=== PATIENT | male | born 1960 | race Caucasian/White ===

== ENCOUNTER 2018-10-13 11:42 | Day surgery (SDC) | payer OTHER, SELFPAY ==
--- NOTE | 2018-10-13 | PATH_ITS ---
[facility] Accession Number: [id number] . 01 Material submitted: . PART A: POLYP X2 ASCENDING COLON AT 80CM PART B: CECAL POLYP PART C: TRANSVERSE COLON POLYP AT 60CM PART D: LEFT COLON POLYP AT 45CM PART E: SIGMOID POLYP AT 20CM X2 . 02 Diagnosis: A. Ascending Colon, Polyp x2 at 80 CM, Biopsies: Fragments of tubular adenoma and sessile serrated adenoma. . B. Cecum, Polyp, Biopsy: Tubulovillous adenoma. No evidence of malignancy or high grade dysplasia. . C. Transverse Colon, Polyp at 60 CM, Biopsy: Tubular adenoma. . D. Left Colon, Polyp at 45 CM, Biopsy: Polypoid colonic mucosa with no diagnostic abnormality, consistent with polypoid redundancy. Additional levels examined. . E. Sigmoid Colon, Polyp at 20 CM x2, Biopsies: Hyperplastic polyp, 1 fragment. JRL/10/14/2018 . 02 Electronically signed: . Joleen Joiner MD, Pathologist NPI- [id number] . 01 Gross description: . Received five formalin-filled containers each labeled with the patient's name. . A. In a container labeled polyp x2 at ascending colon at 80 cm are two 0.2 to 0.6 cm portions of tissue. Entirely submitted in cassette A. B. In a container labeled 2. Cecal polyp are multiple 0.1 to 0.6 cm portions of tissue. Entirely submitted in cassette B. C. In a container labeled transverse colon polyp at 60 cm are two 0.1 to 0.3 cm portions of tissue. Entirely submitted in cassette C. D. In a container labeled left colon polyp at 45 cm, the specimen consists of a 0.2 cm portion of tissue. Entirely submitted in cassette D. E. In a container labeled sigmoid polyp at 20 cm x2, the specimen consists of a 0.2 cm portion of tissue and mucoid material. Entirely submitted in cassette E. ([facility] – [place]:[id number]) / . Pathologist provided ICD-10: D12.2, D12.0, D12.3 . 02 CPT . 242551, 368716, 354813, 149636, 149948 Performed at: 01 [facility] [address] [id number] MD Silverio Mcgraw MD Phone: [phone] Performed at: [address] [id number] MD Joleen Joiner MD Phone: [phone]
[2018-10-13 12:01] VITALS: BP 143/87; PULSE 67; RESP 16; TEMP 36.5; O2SAT 94; BMI 31.9
[2018-10-13] MEDS: SODIUM CHLORIDE 0.9% 1,000 ML 200 ML IV (12:11)
--- NOTE | 2018-10-13 12:55 | PM.HP.1 ---
History of Present Illness Date Patient Seen: 10/13/18 Time Patient Seen: 12:55 Chief complaint: colonoscopy 68030 Narrative: 58-year-old male who underwent initial screening colonoscopy approximately 6 years ago was found have polyps at that time. He returns now for colorectal surveillance. On further history today he denies any new gastrointestinal symptoms. No nausea, vomiting, abdominal pain, loss of appetite, unexplained weight loss, change in bowel habits, diarrhea, constipation, melena, hematochezia, or bright red blood per rectum. He is having occasional discomfort and mild superficial bleeding from external hemorrhoids but not currently. Patient History Medical History History of colon polyps (Acute) Hypercholesterolemia (Acute) Neck fracture (Resolved) Surgical History History of colonoscopy (Acute) Family & Social History Social History: household members spouse Meds Home Medications Medication Instructions Recorded Confirmed Type No Known Home Medications 10/13/18 10/13/18 History Allergies Allergy/AdvReac Type Severity Reaction Status Date / Time No Known Allergies Allergy Uncoded 02/23/18 12:56 Review of Systems Review of Systems All systems reviewed & are unremarkable except as noted in HPI and below Exam Vital Signs (past 8 hours): - 10/13/18 12:01 Temperature 97.7 F Pulse Rate 67 Respiratory Rate 16 Blood Pressure 143/87 H Pulse Oximetry 94 Oxygen Delivery Method Room Air Narrative Exam Narrative: Well-nourished well-developed mildly obese male in no acute distress. Alert oriented x3. Family is at the bedside during my visit. Sclera nonicteric Regular rate and rhythm Abdomen protuberant but soft and nondistended. Nontender. No masses. Extremities show no clubbing, cyanosis, or edema Objective Labs Labs: No new laboratory or radiographic studies for review Assessment & Plan Plan: Assessment/Plan Narrative: 58-year-old male with personal history of colon polyps. It has been 6 years since his last endoscopy. Surveillance colonoscopy is again recommended currently. Technical details of the procedure were discussed. Risks, benefits, alternatives were explained. Risks including but not limited to sedation, aspiration, bleeding, pain, missed lesion, incomplete examination, need for further radiographic studies, colonic perforation, need for major abdominal surgery, and all attendant risks of major surgery were discussed at length. All questions were answered to his satisfaction, and he voiced understanding. Consent was placed on the chart. We will proceed as above.
--- NOTE | 2018-10-13 12:58 | P.HP_ITS ---
History of Present Illness Date Patient Seen: 10/13/18 Time Patient Seen: 12:55 Chief complaint: colonoscopy [id number] Narrative: 58-year-old male who underwent initial screening colonoscopy approximately 6 years ago was found have polyps at that time. He returns now for colorectal surveillance. On further history today he denies any new gastrointestinal symptoms. No nausea, vomiting, abdominal pain, loss of appetite, unexplained weight loss, change in bowel habits, diarrhea, constipation, melena, hematochezia, or bright red blood per rectum. He is having occasional discomfort and mild superficial bleeding from external hemorrhoids but not currently. Patient History Medical History History of colon polyps (Acute) Hypercholesterolemia (Acute) Neck fracture (Resolved) Surgical History History of colonoscopy (Acute) Family & Social History Social History: household members spouse Meds Home Medications Medication Instructions Recorded Confirmed Type No Known Home Medications 10/13/18 10/13/18 History Allergies Allergy/AdvReac Type Severity Reaction Status Date / Time No Known Allergies Allergy Uncoded 02/23/18 12:56 Review of Systems Review of Systems All systems reviewed & are unremarkable except as noted in HPI and below Exam Vital Signs (past 8 hours): - 10/13/18 12:01 Temperature 97.7 F Pulse Rate 67 Respiratory Rate 16 Blood Pressure 143/87 H Pulse Oximetry 94 Oxygen Delivery Method Room Air Narrative Exam Narrative: Well-nourished well-developed mildly obese male in no acute distress. Alert oriented x3. Family is at the bedside during my visit. Sclera nonicteric Regular rate and rhythm Abdomen protuberant but soft and nondistended. Nontender. No masses. Extremities show no clubbing, cyanosis, or edema Objective Labs Labs: No new laboratory or radiographic studies for review Assessment & Plan Plan: Assessment/Plan Narrative: 58-year-old male with personal history of colon polyps. It has been 6 years since his last endoscopy. Surveillance colonoscopy is again recommended currently. Technical details of the procedure were discussed. Risks, benefits , alternatives were explained. Risks including but not limited to sedation, aspiration, bleeding, pain, missed lesion, incomplete examination, need for further radiographic studies, colonic perforation, need for major abdominal surgery, and all attendant risks of major surgery were discussed at length. All questions were answered to his satisfaction, and he voiced understanding. Consent was placed on the chart. We will proceed as above.
--- NOTE | 2018-10-13 12:58 | PM.PREOP ---
Pre-operative Note Interval Note Pre-op Check: Yes History & Physical Reviewed by Physician, Yes Exam Performed and Yes History & Physical exam performed today by Physician Changes: No H&P completed within 30 days and has changed as indicated here:: Patient seen and examined in the preoperative area. History and physical examination placed on the chart today. Proceed with colonoscopy today as planned. ASA Class (for procedural sedation): I
[2018-10-13 13:31] VITALS: BP 154/98; PULSE 70; RESP 18; TEMP 36.2; O2SAT 97
--- NOTE | 2018-10-13 13:32 | PM.OP.ENDO ---
Operative Date/Time/Diagnoses Date of procedure: 10/13/18 Time of procedure: 13:32 Pre-op diagnosis: Personal history of colon polyps Post-op diagnosis: same Procedure & Clinicians Study performed: 1. Sedation per surgeon 2. Colonoscopy with hot snare polypectomies and cold forceps polypectomies Same procedure as scheduled: Yes Indications: 58-year-old male with personal history of colon polyps. Last endoscopy was 6 years ago. He requires surveillance colonoscopy currently. Surgeon: José Luis Cohn Procedure Notes SCOAP/Timeout: Yes Procedure in detail: After obtaining informed consent, the patient was brought to the GI suite and placed in the left lateral decubitus position on the examination table. After placement of appropriate monitors, the patient was given incremental doses of Versed and Fentanyl until an appropriate level of sedation was achieved. A time out was held per SCOAP protocol. A digital rectal examination was performed and did not reveal any masses or obstructing lesions. The colonoscope was gently passed into the patient's anus and the entire colon navigated to the level of the cecum with minimal difficulty. Once in the cecum, the scope was withdrawn being sure to go before and beyond all mucosal folds and prominences and get an excellent examination. The findings are noted above. At the level of the rectal vault, the scope was retroflexed and the internal anal canal was examined. The scope was straightened and air aspirated from the colon. The instrument was removed from the patient's body and the procedure was concluded. The patient was allowed to awaken from sedation without difficulty and taken to the post-anesthesia care unit in good condition. Scope withdrawal time: 20:34 min Sedation minutes: 32 Findings: polyp Specimen(s): other (1. Ascending colon polyps x2 at 80 cm 2. Cecal polyp 3. Transverse colon polyp at 60 cm 4. Left colon polyp at 45 cm 5. Sigmoid colon polyps x2 at 20 cm) Complications: none Recommendations: Colonscopy in 3 years, High fiber diet and Will call with biopsy results Plan for aftercare: 1. Discharged home Follow up: as needed Disposition: same day surgery
[2018-10-13 13:44] VITALS: BP 142/83; PULSE 68; RESP 18; TEMP 36.5; O2SAT 97
--- NOTE | 2018-10-13 13:56 | SUR.PHASEII ---
Pt had very light sedation states he is ready to go home. States he feels great. RN did 2 sets of vitals pt very stable he had 2 juices and IV d/gabriela and pt d/gabriela home with . d/gabriela in wheelchair. No complaints voiced.
[2018-10-13] MEDS: fentaNYL 250 MCG/5 ML INJ 100 MCG IV (14:54)
[2018-10-13] MEDS: MIDAZOLAM 5 MG/5 ML VIAL 2 MG IV (14:55)
== END 2018-10-13 13:55 | disposition home or self-care (01) ==
PROVIDERS: Visit Provider Surgery
PROC: 0DJD8ZZ Inspection of Lower Intestinal Tract, Via Natural or Artificial Opening Endoscopic (ICD-10-PCS; CPT 45378; principal; 2018-10-13 12:45)
DX: Z86.010 Personal history of colon polyps (principal); D12.2 Benign neoplasm of ascending colon; D12.0 Benign neoplasm of cecum; D12.3 Benign neoplasm of transverse colon; K64.4 Residual hemorrhoidal skin tags
CPT/HCPCS: 45385; 45380; 99152; 99153; J2250; J3010

== ENCOUNTER → 2019-08-28 16:22 | Outpatient (CLI) | payer OTHER, SELFPAY ==
[2019-08-28 17:21] LABS: Add Manual Diff / Slide Review NO; Basophils Absolute Auto 0 /uL (0-100); Basophils Percent Auto 0.2 % (0-2); Eosinophils Absolute Auto 100 /uL (0-450); Eosinophils Percent Auto 1.4 % (2-4); Hematocrit 45.2 % (41-53); Hemoglobin 15.5 g/dL (13.5-17.5); Lymphocytes Absolute Auto 1300 /uL (1100-4500); Lymphocytes Percent Auto 20.4 % (25-40); Mean Corpuscular HGB Conc 34.2 % (30-36); Mean Corpuscular Hemoglobin 29.2 PG (26-34); Mean Corpuscular Volume 85.5 fL (80-100); Monocytes Absolute Auto 700 /uL (0-900); Monocytes Percent Auto 10.7 % (3-14); Neutrophils Absolute Auto 4200 /uL (1500-7000); Neutrophils Percent Auto 67.3 % (50-75); Platelet Count 194 X10^3/uL (150-400); Red Blood Cell Count 5.29 X10^6/uL (4.5-5.9); White Blood Cell Count 6.2 X10^3/uL (4.5-11.0)
[2019-08-28 17:36] LABS: BUN Creatinine Ratio 16.3 (6-22); Blood Urea Nitrogen 13 mg/dL (9-20); Calcium 9.2 mg/dL (8.4-10.2); Carbon Dioxide 26 mmol/L (22-32); Chloride 104 mmol/L (98-107); Estimated Glomerular Filt Rate > 60.0 mL/min (>60); Glucose 131 mg/dL (70-100); HEMOLYSIS < 15 (0-50); Lipase 618 U/L (23-300); Potassium 4.4 mmol/L (3.4-5.1); Sodium 139 mmol/L (137-145)
[2019-08-28 18:03] LABS: Alanine Aminotransferase 120 IU/L (21-72); Albumin 4.6 g/dL (3.5-5.0); Albumin Globulin Ratio 1.8 (1.0-2.8); Alkaline Phosphatase 50 U/L (38-126); Aspartate Aminotransferase 87 IU/L (17-59); Bilirubin Total 0.6 mg/dL (0.2-1.3); Bilirubin Unconjugated 0.5 mg/dL (0.0-1.1); Globulin 2.6 g/dL (1.7-4.1); HEMOLYSIS < 15 (0-50); Total Protein 7.2 g/dL (6.3-8.2)
[2019-08-28 19:16] LABS: Clostridium Difficile Tox PCR Negative for C. diff
== END ==
PROVIDERS: Visit Provider Physician Assistant
DX: K52.9 Noninfective gastroenteritis and colitis, unspecified (principal); K85.90 Acute pancreatitis without necrosis or infection, unspecified
CPT/HCPCS: 36415; 80048; 80076; 83690; 85025; 87493

== ENCOUNTER 2019-08-28 20:18 | Emergency (ER) | payer OTHER, SELFPAY ==
[2019-08-28 20:26] VITALS: BP 150/83; PULSE 84; RESP 12; TEMP 36.7; O2SAT 96
[2019-08-28] MEDS: ONDANSETRON 4 MG/2 ML INJ IV (20:38)
[2019-08-28] MEDS: SODIUM CHLORIDE 0.9% 1,000 ML 1000 ML IV (20:38)
--- NOTE | 2019-08-28 20:40 | DI.US.S_ITS ---
PROCEDURE: US ABDOMEN LIMITED INDICATIONS: RIGHT UPPER QUADRANT PAIN TECHNIQUE: Real-time focused scanning was performed of the abdomen, with image documentation. COMPARISON: None. FINDINGS: Liver is enlarged and demonstrates increased echogenicity without definite focal mass. Gallbladder is suboptimally visualized and demonstrates internal echoes, possibly secondary to internal sludge. No gallbladder wall thickening. No definite biliary ductal dilatation. Biliary tree is not well-seen. Visualized pancreas within normal limits. IMPRESSION: 1. Hepatic steatosis. 2. No evidence of cholecystitis. 3. Possible gallbladder sludge. Dictated by: Shagufta Marie M.D. on 08/28/2019 at 21:18 Approved by: Shagufta Marie M.D. on 08/28/2019 at 21:19
[2019-08-28 21:09] LABS: Lipase 273 U/L (23-300)
--- NOTE | 2019-08-28 21:13 | ED_ITS ---
HPI - Abdominal Pain General Chief Complaint: Abdominal Pain Stated Complaint: STOMACH FLU Time Seen by Provider: 08/28/19 20:34 Source: patient Mode of arrival: Ambulatory Limitations: no limitations History of Present Illness HPI narrative: Patient is a 59-year-old male with history of alcoholism presenting with what he thought was a stomach bug. He has had some diarrhea and nausea ongoing for the last 2 days. He went to the walk-in clinic earlier today where he had blood work lipase was found to be 600 and he had minimal elevation of his liver enzymes. He got a return phone call instructed to come to the ED for further evaluation. He states that he is able to tolerate fluids he has not had any vomiting. His diarrhea has not gotten any better but it has not gotten any worse. He denies any blood in his stool. His pain now is minimal. Related Data Home Medications Medication Instructions Recorded Confirmed No Known Home Medications 10/13/18 08/28/19 ibuprofen 600 mg PO Q8H PRN 08/28/19 08/28/19 Allergies Allergy/AdvReac Type Severity Reaction Status Date / Time No Known Drug Allergies Allergy Verified 08/28/19 20:29 Review of Systems Review of Systems Narrative: GENERAL: Denies chills, fatigue, malaise, fever, sweats, travel HEENT: Denies sinus pain, ear pain, sore throat, difficulty swallowing, neck pain RESPIRATORY: Denies dyspnea, cough, wheezing, hemoptysis, sputum. CARDIOVASCULAR: Denies chest pain, palpitations, orthopnea, edema GASTROINTESTINAL: See HPI : Denies dysuria, frequency, incontinence, hematuria, urinary retention, flank pain. MUSCULOSKELETAL: Denies weakness, joint pain, or bony pain SKIN: No rash, no erythema, no pruritus NEUROLOGIC: Denies weakness, dizziness, headache, numbness, change in speech, confusion PSYCHIATRIC: No concerning psychosocial issues. 12 point review of systems is negative except for those stated above and HPI Patient History Social History Social History household members: spouse Smoking Status: Never smoker alcohol intake frequency: 3 or more drinks per day Alcohol type: beer and wine Substance Use Type: does not use Exam Initial Vital Signs Initial Vital Signs: Vital Signs Temperature 98.1 F 08/28/19 20:26 Pulse Rate 84 08/28/19 20:26 Respiratory Rate 12 08/28/19 20:26 Blood Pressure 150/83 H 08/28/19 20:26 Pulse Oximetry 96 08/28/19 20:26 GENERAL: Well-appearing, well-nourished and in no acute distress. HEENT: Head atraumatic,EOMI, pupils reactive, face symmetric CARDIOVASCULAR: Regular rate and rhythm without murmurs, rubs or gallops. RESPIRATORY: Breath sounds equal bilaterally, no wheezes rales or rhonchi. ABDOMEN: Soft, nontender. Normoactive bowel sounds all 4 quadrants. No guarding or rebound. EXTREMITIES: Normal range of motion, no clubbing or edema. Neurovascularly intact NEUROLOGICAL: Alert and oriented x4.Normal gait and speech. Cranial nerves II through XII grossly intact. SKIN: Warm, dry, no laceration, no petechiae, no rashes or lesions. Course Orders Ordered: ED Orders 08/28/19 20:40 US abdomen limited Stat Comprehensive Metabolic Panel Stat Lipase Stat Discontinued Medications Sodium Chloride (Normal Saline 0.9%) 1,000 mls @ 1,000 mls/hr IV BOLUS ONE Stop: 08/28/19 21:29 Last Infusion: 08/28/19 21:32 Dose: 0 mls/hr Documented by: Admin: 08/28/19 20:38 Dose: 1,000 mls/hr Documented by: JOE Ondansetron HCl (Zofran) 4 mg IV NOW ONE Stop: 08/28/19 20:31 Last Admin: 08/28/19 20:38 Dose: 4 mg Documented by: JOE Vital Signs Vital signs: Vital Signs - 8 hr 08/28/19 20:26 08/28/19 21:30 08/28/19 21:50 Temperature 98.1 F Pulse Rate 84 81 78 Respiratory Rate 12 19 14 Blood Pressure 150/83 H 140/75 Blood Pressure [Left Arm] 140/75 Pulse Oximetry 96 96 96 MDM - Abdominal Pain Lab Data Attestation: I reviewed the patient's lab results. Result diagrams: 08/28/19 20:40 Labs: Lab Results 08/28/19 08/28/19 Range/Units 20:40 20:40 Sodium Cancelled 137 Potassium Cancelled 3.8 Chloride Cancelled 104 Carbon Dioxide Cancelled 25 BUN Cancelled 12 Creatinine Cancelled 0.80 Estimated GFR Cancelled > 60.0 BUN/Creatinine Ratio Cancelled 15.0 Glucose Cancelled 127 H Calcium Cancelled 8.7 Total Bilirubin Cancelled 0.6 AST Cancelled 82 H ALT Cancelled 115 H Alkaline Phosphatase Cancelled 46 Total Protein Cancelled 7.2 Albumin Cancelled 4.4 Globulin Cancelled 2.8 Albumin/Globulin Ratio Cancelled 1.6 Lipase 273 D (23-300) U/L Specimen Hemolysis Cancelled Imaging Data US - abdomen: Radiologist's impression: PROCEDURE: US ABDOMEN LIMITED INDICATIONS: RIGHT UPPER QUADRANT PAIN TECHNIQUE: Real-time focused scanning was performed of the abdomen, with image documentation. COMPARISON: None. FINDINGS: Liver is enlarged and demonstrates increased echogenicity without definite focal mass. Gallbladder is suboptimally visualized and demonstrates internal echoes, possibly secondary to internal sludge. No gallbladder wall thickening. No definite biliary ductal dilatation. Biliary tree is not well-seen. Visualized pancreas within normal limits. IMPRESSION: 1. Hepatic steatosis. 2. No evidence of cholecystitis. 3. Possible gallbladder sludge. Dictated by: Shagufta Marie M.D. on 08/28/2019 at 21:18 MDM Narrative Medical decision making narrative: No evidence of pancreatitis or acute cholecys titis. He does have some gallbladder sludge noted. At this time patient can be discharged home with close outpatient follow-up. Symptoms are actually more consistent with gastroenteritis rather than pancreatitis. Discharge Plan Departure Patient Disposition: Home Clinical Impression: Abdominal pain Qualifiers: Abdominal location: generalized Qualified Code(s): R10.84 - Generalized abdominal pain Discharge Date/Time: 08/28/19 21:51 Instructions: DI for Abdominal Pain-Adult Activity Restrictions/Additional Instructions: *You have been diagnosed with abdominal pain *What to do: Increase fluid intake. No evidence of pancreatitis or gallbladder problems. Her liver enzymes are mildly elevated. You may require repeat evaluation of her gallbladder if he has continued to have significant pain in her right upper quadrant *Continue to take medications as directed *Follow up with your primary care provider in 2-3 days *Return to ER if you should have increasing pain persistent vomiting or any new, worsening or concerning symptoms Prescriptions: No Action No Known Home Medications RF: 0 ibuprofen 600 mg Tablet 600 mg PO Q8H PRN (Reason: Pain (Scale Score 4-6)) RF: 0
[2019-08-28 21:30] VITALS: BP 140/75; PULSE 81; RESP 19; O2SAT 96
[2019-08-28 21:30] LABS: Alanine Aminotransferase 115 IU/L (21-72); Albumin 4.4 g/dL (3.5-5.0); Albumin Globulin Ratio 1.6 (1.0-2.8); Alkaline Phosphatase 46 U/L (38-126); Aspartate Aminotransferase 82 IU/L (17-59); Bilirubin Total 0.6 mg/dL (0.2-1.3); Blood Urea Nitrogen 12 mg/dL (9-20); Calcium 8.7 mg/dL (8.4-10.2); Carbon Dioxide 25 mmol/L (22-32); Chloride 104 mmol/L (98-107); Estimated Glomerular Filt Rate > 60.0 mL/min (>60); Globulin 2.8 g/dL (1.7-4.1); Glucose 127 mg/dL (70-100); HEMOLYSIS < 15 (0-50); Potassium 3.8 mmol/L (3.4-5.1); Sodium 137 mmol/L (137-145); Total Protein 7.2 g/dL (6.3-8.2)
[2019-08-28 21:50] VITALS: BP 140/75; PULSE 78; RESP 14; O2SAT 96
== END 2019-08-28 21:51 | disposition home or self-care (01) ==
PROVIDERS: Emergency Provider Emergency Medicine
DX: R10.84 Generalized abdominal pain (principal)
CPT/HCPCS: 36415; 76705; 80048; 80053; 80076; 83690; 85025; 87493; 96361; 96374; 99283; 99284; J2405

== ENCOUNTER → 2021-11-18 13:11 | Outpatient (CLI) | payer OTHER, SELFPAY ==
[2021-11-18 13:58] LABS: COVID19 -Nasal RAPID POSITIVE (Negative)
== END ==
PROVIDERS: Visit Provider Nurse Practitioner Family
DX: R51.9 Headache, unspecified (principal)
CPT/HCPCS: 87635

== ENCOUNTER → 2025-07-25 09:22 | Outpatient (CLI) | payer OTHER, SELFPAY ==
--- NOTE | 2025-07-27 17:50 | DI.NM.S_ITS ---
DATE OF SERVICE: 07/25/2025 EXERCISE PERFUSION STUDY INDICATIONS: Coronary artery disease. RADIOPHARMACEUTICAL: 24.4 millicurie technetium-99m Myoview IV was injected at stress and 25.6 millicurie technetium-99m Myoview IV was injected at rest. CARDIAC STRESS: The patient underwent exercise perfusion study under the supervision of an attending staff. The patient walked on Kit protocol for 9 minutes and 20 seconds, achieved maximum heart rate of 136, which was 87% of target heart rate with resting blood pressure 130/80 and peak blood pressure 170/80, 10.1 METS of workload and KRISTIN - 11%. Baseline rhythm was sinus. During peak exercise, the patient developed [address] depression in leads V5 and upsloping ST depression in leads V4 and V6 and got immediately improved in recovery. However, late in recovery, around 3 minutes, the patient developed [address] depression in inferior leads and nonspecific changes in the other leads. Those changes returned back to the baseline around 7 minutes in the recovery. During exercise, intermittent PVCs without any ventricular tachycardia. The patient had significant shortness of breath with exercise with oxygen saturation 99%. Also had mid chest tightness which was nonradiating. On a scale of 1 to 10, three in intensity and got resolved with rest. RAW DATA: There is increased subdiaphragmatic activity. GATED STUDY: Resting LV ejection fraction 72% and stress LV ejection fraction is 74% without any significant wall motion abnormalities. Resting end-diastolic volume 105 mL. TID ratio 1.08, which is within normal limits. MYOCARDIAL PERFUSION SCAN: Stress supine, resting supine, and stress prone images were compared to each other. Resting supine images revealed small size minimally decreased perfusion of basal inferior wall and inferior apex. The stress supine images revealed moderate size, moderate to severely decreased perfusion of apex, distal anteroseptum and distal inferior wall. During stress prone images, overall significant improvement of mid to distal anterior wall and anterior apex. However, the stress prone images remained to have mildly decreased perfusion of distal inferior wall extending into the distal inferolateral wall and minimally decreased perfusion of distal anterior wall. CONCLUSION: This is an abnormal myocardial perfusion study with mild reversible ischemia in the distal inferolateral wall and distal anterior wall with fixed defect of distal inferior wall. The patient had ischemic EKG changes in late recovery. It got resolved around 7 minutes in the recovery. As stated above, the patient had good exercise tolerance. He walked on Kit protocol for 9 minutes and 20 seconds, however, had significant shortness of breath with oxygen saturation 99% and on a scale of 1 to 10, mid chest tightness which got resolved with rest. Preserved LV function without any significant wall motion abnormalities. Correlate clinically. Aroldo Doll - ZAHIRA/yari/CONCEPCION doc#: [id number]/job#: [id number] dd: 07/27/2025 17:35:00 dt: 07/27/2025 17:41:00 DICTATING MD/COPIES TO: Brooke Patton MD; Andriy Lou M.D. COPIES MNE: IVY;
== END ==
PROVIDERS: Referring Provider Internal Medicine; Visit Provider Internal Medicine
DX: I70.90 Unspecified atherosclerosis (principal); R94.39 Abnormal result of other cardiovascular function study; I10 Essential (primary) hypertension; E11.9 Type 2 diabetes mellitus without complications
CPT/HCPCS: 78452; 93017; A9502